=== PATIENT | male | born 1985 | race Caucasian/White ===

== ENCOUNTER → 2018-04-14 16:29 | Outpatient (CLI) | payer OTHER, MEDICAID, SELFPAY ==
--- NOTE | 2018-04-14 16:31 | DI.MRI.S_ITS ---
PROCEDURE: MR KNEE RT WO CON INDICATIONS: MEDIAL RIGHT KNEE PAIN TECHNIQUE: Noncontrast sagittal PD fast spin echo and T2 fast spin echo with fat saturation, sagittal 3-D FLASH with fat saturation; coronal T1 spin echo and PD fast spin echo with fat saturation, and axial PD fast spin echo with fat saturation through the knee. COMPARISON: None. FINDINGS: Image quality: Excellent. Menisci: Linear horizontal high T2 signal intensity traverses the posterior horn medial meniscus, demonstrating inferior articular surface extension, indicating horizontal tearing. Lateral meniscus is intact. Cruciate ligaments: The anterior and posterior cruciate ligaments appear intact. Medial structures: The medial collateral ligament appears intact. Visualized portions of the pes anserinus tendons appear normal. No abnormal bursal fluid. Lateral structures: The lateral collateral ligament, long and short heads of the biceps femoris tendon appear intact. The popliteus tendon appears normal. Iliotibial band appears normal. Anterior structures: The quadriceps and patellar tendons appear intact. Patellar alignment is normal. No femoral trochlear dysplasia or ventral trochlear prominence. No edema in the infrapatellar fat pad. Bones and cartilage: No bone marrow contusions or fractures. Mild diffuse articular cartilage loss overlies the weightbearing aspects of the medial femoral condyle and medial tibial plateau. Joint space: There is physiologic knee joint fluid. No Cardenas's cyst. Normal appearing synovial plicae are incidentally noted. IMPRESSION: 1. Medial meniscal tearing. 2. Mild medial compartment articular cartilage loss. Dictated by: Cammie Sparks M.D. on 04/15/2018 at 15:32 Approved by: Cammie Sparks M.D. on 04/15/2018 at 15:34
== END ==
PROVIDERS: PCP Nurse Practitioner Family; Visit Provider Nurse Practitioner Family
DX: M25.561 Pain in right knee (principal); S83.241A Other tear of medial meniscus, current injury, right knee, initial encounter
CPT/HCPCS: 73721

== ENCOUNTER → 2018-06-07 11:23 | Outpatient (CLI) | payer OTHER, MEDICAID, SELFPAY ==
[2018-06-07 12:16] LABS: Hematocrit 45.3 % (41-53); Hemoglobin 15.8 g/dL (13.5-17.5); Mean Corpuscular HGB Conc 34.8 % (30-36); Mean Corpuscular Hemoglobin 30.1 PG (26-34); Mean Corpuscular Volume 86.3 fL (80-100); Platelet Count 238 X10^3/uL (150-400); Red Blood Cell Count 5.25 X10^6/uL (4.5-5.9); Red Cell Distribution Width 13.4 % (11.6-14.8); White Blood Cell Count 7.9 X10^3/uL (4.5-11.0)
[2018-06-07 12:32] LABS: Alanine Aminotransferase 54 IU/L (21-72); Albumin 4.8 g/dL (3.5-5.0); Albumin Globulin Ratio 1.7 (1.0-2.8); Alkaline Phosphatase 62 U/L (38-126); Aspartate Aminotransferase 29 IU/L (17-59); BUN Creatinine Ratio 13.3 (6-22); Bilirubin Total 0.7 mg/dL (0.2-1.3); Blood Urea Nitrogen 12 mg/dL (9-20); Calcium 9.9 mg/dL (8.4-10.2); Carbon Dioxide 25 mmol/L (22-32); Chloride 104 mmol/L (98-107); Cholesterol 234 mg/dL (140-199); Estimated Glomerular Filt Rate > 60.0 mL/min (>60); Globulin 2.9 g/dL (1.7-4.1); Glucose 94 mg/dL (70-100); HDL Cholesterol 54 mg/dL (40-60); HEMOLYSIS < 15 (0-50); LDL Cholesterol Calculated 143 mg/dL (<100); Sodium 138 mmol/L (137-145); Total Protein 7.7 g/dL (6.3-8.2); Triglycerides 185 mg/dL (35-150)
== END ==
PROVIDERS: PCP Nurse Practitioner Family; Visit Provider Nurse Practitioner Family
DX: Z00.00 Encounter for general adult medical examination without abnormal findings (principal); Z68.27 Body mass index [BMI] 27.0-27.9, adult
CPT/HCPCS: 36415; 80053; 80061; 85027